=== PATIENT | male | born 1965 | race Caucasian/White ===

== ENCOUNTER → 2017-11-11 | Outpatient (CLI) | payer OTHER, MEDICARE ==
--- NOTE | 2017-11-11 10:04 | NM ---
Nuclear medicine hepatobiliary scan. HISTORY: Pain. DOSAGE: The patient received 8 ounces of ensure plus and 5.2 mCi of Technetium 99m Choletec. FINDINGS: There is normal hepatic extraction. The gallbladder is seen by 20 minutes. There is bilia ry to bowel clearance by 40 minutes. Ejection fraction is 36%. IMPRESSION: 1. Ejection fraction of 36% correlate for borderline biliary dyskinesia.
== END | disposition home or self-care (01) ==
LOC: RADNMMAIN 07:00
PROVIDERS: ATTEND Family Medicine
DX: R10.11 Right upper quadrant pain (principal)
CPT/HCPCS: 78226; A9537

== ENCOUNTER → 2018-06-07 | Outpatient (CLI) | payer OTHER, MEDICARE ==
--- NOTE | 2018-06-08 09:21 | XR ---
EXAMINATION TYPE: XR cervical spine comp DATE OF EXAM: 06/08/2018 COMPARISON: NONE HISTORY: Pain TECHNIQUE: Four views are submitted. FINDINGS: The odontoid is intact. There are no compression deformities. The prevertebral soft tissue structur es are within normal limits. Hypertrophic changes are seen at levels C4-C7. Posterior spondylosis wi th moderate degenerative disc disease C5-6 and C6-C7. Foraminal encroachment bilaterally at C5-6. IMPRESSION: 1. Multilevel degenerative disc disease with posterior spondylosis. Foraminal encroachment C5-C6.
== END | disposition home or self-care (01) ==
LOC: RADXRYALE 15:26
PROVIDERS: ATTEND Physician Assistant Medical
DX: M50.322 Other cervical disc degeneration at C5-C6 level (principal); M47.812 Spondylosis without myelopathy or radiculopathy, cervical region
CPT/HCPCS: 72050

== ENCOUNTER → 2019-05-14 | Outpatient (CLI) | payer OTHER, MEDICARE ==
--- NOTE | 2019-05-14 16:14 | XR ---
EXAMINATION TYPE: XR chest 2V DATE OF EXAM: 05/14/2019 COMPARISON: NONE HISTORY: Intercostal pain, shortness of breath TECHNIQUE: Frontal and lateral views of the chest are obtained. FINDINGS: There is no focal air space opacity, pleural effusion, or pneumothorax seen. The cardiac silhouette size is within normal limits. The osseous structures are intact. There is artifact on th e exam. IMPRESSION: No acute cardiopulmonary process.
== END | disposition home or self-care (01) ==
LOC: RADXRYALE 14:21
PROVIDERS: ATTEND Physician Assistant Medical
DX: R06.02 Shortness of breath (principal); R07.82 Intercostal pain
CPT/HCPCS: 71046

== ENCOUNTER → 2020-12-19 | Outpatient (CLI) | payer OTHER, MEDICARE ==
--- NOTE | 2020-12-19 11:18 | XR ---
EXAMINATION TYPE: XR chest 2V DATE OF EXAM: 12/19/2020 COMPARISON: Chest x-ray dated 07/18/2019 HISTORY: Shortness of breath, left lung cancer TECHNIQUE: Frontal and lateral views of the chest are obtained. FINDINGS: There is lateralization of the left hemidiaphragm. No evident pneumothorax. Cardiomediasti nal silhouette is stable. IMPRESSION: Interval development of lateralization of the left hemidiaphragm, there may be underlyin g effusion, pneumonia not excluded, consider chest CT
== END | disposition home or self-care (01) ==
LOC: RADXRYALE 10:51
PROVIDERS: ATTEND Family Medicine
DX: C34.92 Malignant neoplasm of unspecified part of left bronchus or lung (principal); J98.6 Disorders of diaphragm
CPT/HCPCS: 71046

== ENCOUNTER → 2022-01-29 | Outpatient (CLI) | payer OTHER, MEDICARE ==
--- NOTE | 2022-01-31 13:38 | XR ---
EXAMINATION TYPE: XR KUB DATE OF EXAM: 01/29/2022 Comparison: None Clinical History: 57-year-old male [id number] HEMATURIA Findings: L3-S1 posterior lumbar fusion with corresponding laminectomies and lateral osseous fusion changes. No suspicious calcification identified on either side. Nonobstructive bowel gas pattern. No significant stool burden. Impression: L3-S1 posterior lumbar fusion with laminectomies and lateral osseous fusion. No suspicious calcificat ions are radiographically apparent. No significant stool burden.
== END | disposition home or self-care (01) ==
LOC: RADXRYALE 16:38
PROVIDERS: ATTEND Family Medicine
DX: M43.26 Fusion of spine, lumbar region (principal)
CPT/HCPCS: 74018

== ENCOUNTER → 2022-11-11 | Outpatient (CLI) | payer OTHER ==
--- NOTE | 2022-11-11 09:51 | XR ---
EXAMINATION TYPE: XR abdomen 2V DATE OF EXAM: 11/11/2022 CLINICAL HISTORY: Abdominal pain and constipation, history of lung cancer and bone metastases TECHNIQUE: Supine and upright views of the abdomen are obtained COMPARISON: 01/29/2022 FINDINGS: Gas and stool within nondistended colon. No dilated small bowel loops. No air-fluid levels. There is no visceromegaly, pneumoperitoneum, or abnormal calcification. Chronic elevation of the le ft hemidiaphragm. Right pleural effusion or pleural thickening. Several nodules projecting over the r ight lower lung. Postsurgical spinal fusion of L3-S1 and associated laminectomy defects. IMPRESSION: 1. Nonobstructive bowel gas pattern. 2. Several lung nodules projecting over the right lower lung. Right pleural effusion or pleural thick ening. Correlate with history of known lung cancer. No recent cross-sectional imaging is available fo r comparison.
== END | disposition home or self-care (01) ==
LOC: RADXRYALE 09:11
PROVIDERS: ATTEND Family Medicine
DX: C34.92 Malignant neoplasm of unspecified part of left bronchus or lung (principal); C79.51 Secondary malignant neoplasm of bone; R91.8 Other nonspecific abnormal finding of lung field; R10.84 Generalized abdominal pain; K59.00 Constipation, unspecified
CPT/HCPCS: 74019